=== PATIENT | female | born 1950 | race Caucasian/White ===

== ENCOUNTER 2020-10-12 08:39 | Outpatient (CLI) | payer OTHER, SELFPAY ==
--- NOTE | 2020-10-12 06:00 | DI.RAD_ITS ---
EXAM: XR PAIN CLINIC SACRIOILIAC 2V CLINICAL HISTORY: Dx: Sacroiliac Joint dysfunction. TECHNIQUE: Fluoroscopy was provided for the referring physician for guidance with performing injecti on procedure. COMPARISON: CR XR SACRUM AND COCCYX from 07/26/2020 CR XR SACRUM AND COCCYX from 07/26/2020 FINDINGS: Please see procedure note for details. Hard copy images show a calcified uterine fibroid which was seen on previous sacrum and coccyx images from [facility] dated 26 July 2020. RADIATION DOSE DELIVERED: Fluoro time 21.3 seconds. Radiation dose 5.06 mGy.
[2020-10-12 09:02] VITALS: BP 140/84; PULSE 68; RESP 17; TEMP 36.4; O2SAT 98
[2020-10-12 09:48] VITALS: BP 159/81; PULSE 80; RESP 13; O2SAT 100
[2020-10-12] MEDS: methylPREDNISolone ACETATE 80 MG/ML VIAL IJ (09:50)
--- NOTE | 2020-10-12 10:00 | PDOC.PAIN ---
Pain Clinic Procedure Note Procedure Note Procedure Note: INTRA-ARTICULAR SI JOINT INJECTION KIRAN ROGERS has been referred to the Pain Management Center for intra-articular SI joint injection. pre-operative diagnosis: sacroiliac joint dysfunction post-operative diagnosis: same as above COMMENTS: patient was evaluated by Ms Anne Carolina in clinic who recommended a trial of left SI joint injection for symptomatic pain relief. patient reported that 2 days after her clinic evaluation, she had about 3-4 weeks of bowel incontinence, denies saddle paresthesia, no worsening back pain, no leg weakness/numbness, she has baseline balance issues which has not changed significantly. 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 Her bowel issue spontaneously resolved and has not recurred. Patient was interviewed and the medical record reviewed. There were no medical, pharmacologic, radiographic or other structural contraindications to attempting fluoroscopically guided intra-articular SI joint injection. Risks and expected side effects as well as potential benefit of the procedure were reviewed and voiced concerns addressed. The printed consent form was signed and witnessed. Standard time-out procedure was performed. Patient was placed in the prone position on the fluoroscopy table and automated blood pressure cuff and pulse oximeter applied. The skin entry point for approaching left SI joints was identified under the most advantageous fluoroscopic view and marked. Following thorough Chlorhexadine preparation of the skin and draping and 1% lidocaine infiltration of the skin entry point and subcutaneous tissues, a 22 gauge spinal needle was placed under fluoroscopic guidance into left SI joints was identified under the most advantageous fluoroscopic view and marked. Following thorough Chlorhexadine preparation of the skin and draping and 1% lidocaine infiltration of the skin entry point and subcutaneous tissues, a 22 gauge spinal needle was placed under fluoroscopic guidance into left SI joint. due to previous allergic reaction to iodinated contrast, Omnipaque 240 was not used. AP and lateral images were taken to confirm needle placement. Then 1ml 1% lidocaine, and 40mg Depomedrol were injected intra-articularily with an initial reproduction of a significant component of the usual pain. Vital signs were stable throughout the procedure and were as recorded in the docflowsheet by the nursing staff. Follow up plans and appointments were discussed with the patient. Post procedure instruction was given as documented in nursing documentation and having met discharge criteria, and was discharged from the Pain Management Center. COMMENTS: there was an incidental finding of midline, radiodense, well circumscribed round structure identified on the fluoroscopic image. I spoke with radiologist Dr White who confirmed that the same structure has been identified on her previous pelvic x-ray and it represents a calcified fibroid. I relayed the message to patient. I encouraged Ms Rogers to discuss her bowel issues with her PCP and see if additional evaluation by GI specialist is warranted. Chito Frias MD Pain Management CC: MALLORY PARADA
== END 2020-10-12 08:40 | disposition home or self-care (01) ==
PROVIDERS: PCP Family Medicine; Visit Provider Internal Medicine
DX: M53.3 Sacrococcygeal disorders, not elsewhere classified (principal)
CPT/HCPCS: 27096; 72200; J1040

== ENCOUNTER 2021-08-04 01:28 | Outpatient (CLI) | payer OTHER, SELFPAY ==
--- NOTE | 2021-08-04 | DI.US_ITS ---
Exam(s) US PAIN CLINIC NEEDLE GUIDANCE EXAM: ULTRASOUND GUIDED INJECTION,SI JOINT DYSFUNCTION ON LT L5,NERVE ROOT SYN COMPARISON: No exams were available for comparison TECHNIQUE: Ultrasound performed using standard protocol. FINDINGS: Ultrasound guidance was performed for left piriformis muscle trigger point injection. The radiologis t was not present for this procedure. IMPRESSION: DATA REPOSITORY:
[2021-08-04 09:01] VITALS: BP 135/86; PULSE 77; RESP 18; TEMP 36.7; O2SAT 97
--- NOTE | 2021-08-04 09:50 | PDOC.PAIN_ITS ---
Pain Clinic Procedure Note Procedure Note Procedure Note: ULTRASOUND GUIDED Left Piriformis muscle trigger point INJECTIONS Pre-Procedural Evaluation: Evelyn Rogers has been referred to the Pain Management Center for an Ultrasound Guided left Piriformis muscle trigger point injection for a chief complaint of left buttock and left leg pain. Pre-procedure Pain Score: 5/10 DX: Muscle pain, Piriformis syndrome Patient was interviewed and the medical record reviewed. There were no medical, pharmacologic, radiographic, or other structural contraindications to preforming an ultrasound guided injection. Risks and expected side effects as well as pote ntial benefits of the procedure were reviewed. The patient consent form was signed and witnessed. Standard time-out procedure was performed. The use of direct ultrasound visualization of the needle (rather than a non- guided injection) was required to increase patient safety by excluding inadvertent intramuscular, intratendinous, or intraneural needle placement and minimizing bleeding by avoiding osteochondral or vascular injury from the needle. Additionally, the increased accuracy of placement may increase clinical effectiveness and will allow higher diagnostic specificity when evaluating ef fectiveness of this injection. Procedure Description: The patient was placed in the prone position and automated blood pressure cuff and pulse oximeter applied for monitoring during the procedure and recorded in the medical record. Pre-injection ultrasound scanning of the area of interest was performed using linear transducer, identifying relevant anatomy, landmarks, and neurovascular structures allowing for optimal needle path. The site was then prepared in the usual sterile fashion, using thorough Chlorhexadine preparation of the skin and sterile draping. The same ultrasound transducer was then passed into the sterile field using sterile probe cover and sterile ultrasound gel. The injection target was again visualized. Skin and subcutaneous tissues were anesthetized with 2 mL of 1% Lidocaine. A 21G 3.5 Pajunk ultrasound needle was placed under live ultrasound guidance, using an in-plane approach, to the target area. After visualization of the needle tip at the target area, first 40 mg of Depomedrol (40 mg/cc) was injected after negative aspiration for blood. This was flushed with 3 cc of 1% Lidocaine. Numerous passes were made through the posterior aspect of the Piriformis muscle. Ultrasound images were captured and stored for documentation purposes. Post-procedure Pain Score:4/10 Vital signs were stable throughout the procedure and were as recorded in the docflowsheet by the nursing staff. Follow up plans and appointments were discussed with the patient.Post procedure instruction was given as documented in nursing documentation and having met discharge criteria, they were discharged from the Pain Management Center. COMMENTS: If this procedure is helpful, it can be completed up to 3 times per 12 months. Judd Saldana DO, MPH [facility]-Pain Management [facility]
[2021-08-04] MEDS: methylPREDNISolone ACETATE 40 MG/ML VIAL IJ (09:52)
[2021-08-04 09:57] VITALS: PULSE 79; O2SAT 100
== END 2021-08-04 01:48 ==
PROVIDERS: PCP Family Medicine; Visit Provider Preventive Medicine Occupational Medicine
DX: G57.02 Lesion of sciatic nerve, left lower limb (principal); M79.605 Pain in left leg; M79.18 Myalgia, other site
CPT/HCPCS: 20552; 76942; J1030

== ENCOUNTER → 2021-12-21 02:56 | Outpatient (CLI) | payer OTHER, SELFPAY ==
--- NOTE | 2021-12-21 | DI.US_ITS ---
Exam(s) US PAIN CLINIC NEEDLE GUIDANCE EXAM: PIRIFORMIS SYNDROME, G57.01,ultrasound guided injection COMPARISON: US US PAIN CLINIC NEEDLE GUIDANCE from 08/04/2021 TECHNIQUE: Ultrasound performed using standard protocol. FINDINGS: Ultrasound guidance provided during left for piriformis trigger point injection. Radiologist was not present during this procedure IMPRESSION: DATA REPOSITORY:
[2021-12-21 09:34] VITALS: BP 129/85; PULSE 72; RESP 18; TEMP 36.7; O2SAT 98
[2021-12-21 10:13] VITALS: PULSE 83; O2SAT 100
--- NOTE | 2021-12-21 10:16 | PDOC.PAIN ---
Pain Clinic Procedure Note Procedure Note Procedure Note: ULTRASOUND GUIDED LEFT PIRIFORMIS MUSLCE TRIGGER POINT INJECTIONS Pre-Procedural Evaluation: Evelyn Rogers has been referred to the Pain Management Center for an Ultrasound Guided left Piriformis muscle trigger point injection for a chief complaint of left buttock and left leg pain. Pre-procedure Pain Score: 4/10 Patient was interviewed and the medical record reviewed. There were no medical, pharmacologic, radiographic, or other structural contraindications to preforming an ultrasound guided injection. Risks and expected side effects as well as potential benefits of the procedure were reviewed. The patient consent form was signed and witnessed. Standard time-out procedure was performed. The use of direct ultrasound visualization of the needle (rather than a non-guided injection) was required to increase patient safety by excluding inadvertent intramuscular, intratendinous, or intraneural needle placement and minimizing bleeding by avoiding osteochondral or vascular injury from the needle. Additionally, the increased accuracy of placement may increase clinical effectiveness and will allow higher diagnostic specificity when evaluating effectiveness of this injection. Procedure Description: The patient was placed in the prone position and automated blood pressure cuff and pulse oximeter applied for monitoring during the procedure and recorded in the medical record. Pre-injection ultrasound scanning of the area of interest was performed using linear transducer, identifying relevant anatomy, landmarks, and neurovascular structures allowing for optimal needle path. The site was then prepared in the usual sterile fashion, using thorough Chlorhexadine preparation of the skin and sterile draping. The same ultrasound transducer was then passed into the sterile field using sterile probe cover and sterile ultrasound gel. The injection target was again visualized. Skin and subcutaneous tissues were anesthetized with 2 mL of 1% Lidocaine. A 21G Pajunk Ultrasound needle was placed under live ultrasound guidance, using an in-plane approach, to the target area. After visualization of the needle tip at the target area, a 40 mg of Depomedrol (40 mg/cc) followed by 4 cc of 2% Lidocaine. The injectate was delivered after negative aspiration for blood. I then made 15 passes through the posterior piriformis muscle fascial plan. Ultrasound images were captured and stored for documentation purposes. Post-procedure Pain Score:2/10 Vital signs were stable throughout the procedure and were as recorded in the docflowsheet by the nursing staff. Follow up plans and appointments were discussed with the patient.Post procedure instruction was given as documented in nursing documentation and having met discharge criteria, they were discharged from the Pain Management Center. COMMENTS: She will continue with her PT and home exercises. Her PT is concerned about instability in her lumbar spine secondary to problems using extension exercises. I recommended that we get a flexion/extension x-rays of the lumbar spine to rule this out. Judd Saldana DO, MPH [facility]-Pain Management [facility] Pain Management
[2021-12-21] MEDS: Lidocaine 2% Pres-Free 2 ML VIAL IJ (10:27)
[2021-12-21] MEDS: methylPREDNISolone ACETATE 40 MG/ML VIAL IJ (10:27)
== END ==
PROVIDERS: PCP Family Medicine; Visit Provider Preventive Medicine Occupational Medicine
DX: M79.605 Pain in left leg (principal); M79.18 Myalgia, other site
CPT/HCPCS: 20552; 76942; J1030

== ENCOUNTER 2024-05-21 07:36 | Outpatient (CLI) | payer MEDICARE, SELFPAY ==
[2024-05-21] VITALS (10 sets, daily range): BP systolic 152–194; BP diastolic 87–114; PULSE 75–88; RESP 11–20; TEMP 36.7; O2SAT 98–100
--- NOTE | 2024-05-21 06:00 | DI.RAD_ITS ---
Exam(s) XR PAIN CLINIC SACRIOILIAC 2V EXAM: XR PAIN CLINIC SACRIOILIAC 2V CLINICAL HISTORY: DX: Sacroiliac Dysfunction TECHNIQUE: 2D and realtime digital imaging was performed. CONTRAST MATERIAL: Refer to procedure report. COMPARISON: No exams were available for comparison FINDINGS: Fluoroscopy was provided for Dr. Saldana during the performance of a left sacroiliac joint injection. Please refer to the procedure report for complete details. Ka,r=3.54 mGy IMPRESSION: RADIATION DOSE DELIVERED: 0.0 0.0 0
[2024-05-21] MEDS: Nerve Block Tray 1 EACH MC (08:53)
[2024-05-21] MEDS: methylPREDNISolone ACETATE 80 MG/ML VIAL IJ (08:53)
[2024-05-21] MEDS: Omnipaque 240 MG/ML 50 ML BTL IJ (08:53)
--- NOTE | 2024-05-21 10:34 | PDOC.PAIN ---
Date of service: 05/21/24 Time of Service: 10:34 Pain Managment Procedure Note Procedure Note Procedure Note: PROCEDURE NOTE LEFT INTRA-ARTICULAR SACROILIAC JOINT INJECTION Date of Service: May 21, 2024 Patient: Evelyn Rogers Provider: Judd Donald DO, MPH COMMENTS: I previously evaluated the patient in the office and their symptoms in relation to the sacroiliac joint pain have remained the same. There was some question of iodine allergy as she had a reaction to shellfish 45 years ago. We discussed this in detail and I feel that she will be fine with the Iodine contrast. She agrees to try this. Pre-operative diagnosis: Sacroiliac joint dysfunction ICD-10 M53.3 Post-operative diagnosis: Same Pre-procedure pain: VAS= 6/10 Evelyn Rogers has been referred to our [facility] for a Left intra-articular Sacroiliac joint injection. Evelyn was interviewed and the medical record reviewed. There were no medical, pharmacologic, radiographic or other structural contraindications to attempting a fluoroscopically-guided, contrast-enhanced, intra-articular Sacroiliac joint injection. The risks, benefits, and potential side effects of this procedure were reviewed with the patient. Questions and concerns were addressed. After it was clear that Evelyn was fully informed about the procedure, the printed consent form was signed by the patient and myself. Evelyn was placed in the prone position on the fluoroscopy table and an automated blood pressure cuff, 3 lead EKG, and pulse oximeter were applied. The skin entry point for approaching the Left sacroiliac joint was identified under the most advantageous fluoroscopic view and marked. Following thorough Chlorhexadine preparation of the skin and draping with sterile surgical drapes, 2 mls of 1% lidocaine was infiltrated into the skin at the entry point and the surrounding subcutaneous tissues. Next, a 3.5 22G spinal needle was placed under fluoroscopic guidance into the Left sacroiliac joint. Intra-articular placement was confirmed by a clear arthrogram resulting from the injection of 0.25ml of Omnipaque-240. Next, 1 ml of Depo- Medrol 80 mg/ml was injected intra-articularly with an initial reproduction of a significant component of the usual pain. This was followed with 1 ml of 1% Lidocaine. The needle was then removed without difficulty. (49 ml of Omnipaque-240 was wasted). Evelyn's vital signs were stable throughout the procedure and were as recorded in nursing records. Follow up plans and appointments were discussed with Evelyn. Post procedure instructions were given as documented in nursing records. Having met discharge criteria, Evelyn was discharged from the [facility]. COMMENTS: Post-procedure pain: VAS= 0/10. If the patient receives at least 50% improvement in pain and/or function for at least 3 months, this procedure can be repeated if needed. We watched her for 30 minutes. She did not have any allergic reactions. I personally performed this entire procedure. JUDD DONALD DO, MPH [facility]-subspecialty board certification in Pain Medicine [facility]-Center for Pain Management
== END 2024-05-21 07:37 | disposition home or self-care (01) ==
LOC: PC 07:36
PROVIDERS: PCP Physician Assistant; Visit Provider Preventive Medicine Occupational Medicine
DX: M54.50 Low back pain, unspecified (principal); M53.3 Sacrococcygeal disorders, not elsewhere classified
CPT/HCPCS: 27096; 72200; J1010; Q9967

== ENCOUNTER 2024-12-03 10:38 | Outpatient (CLI) | payer BC, SELFPAY ==
[2024-12-03] VITALS (9 sets, daily range): BP systolic 137–224; BP diastolic 66–95; PULSE 69–74; RESP 14–18; TEMP 36.6; O2SAT 99–100
--- NOTE | 2024-12-03 12:00 | PDOC.PAIN_ITS ---
Date of service: 12/03/24 Time of Service: 12:00 US Guided Injections Type of Ultrasound Guided Injection: Right Scapulothoracic Bursa Injection and Middle back Right Paraspinous and Rhomboid muscle Trigger Point Injection Pre-Procedural Evaluation No skin abnormalities at the area of the proposed injection sites Referral Patient has been referred to the Pain Management Center for Right Scapulothoracic Bursa Injection and Right Paraspinous and Rhomboid muscle Middle back Trigger Point Injection for a chief complaint of Pre-Procedural Pain Score Pre-procedural pain score: 7/10 Reason for Exam Pain to the right middle back Patient Interview Patient was interviewed and medical record reviewed: Yes There were no contraindications to performing an US guided procedure. Risks,expected side effects, potential benefits were reviewed. The patient consent form was signed and witnessed. Standard time out procedure was performed. Patient Safety Skin without noticeable irregularity at the proposed injection site. Procedure Description No sedation given for procedure Patient was placed in the prone position and the following Pulse Ox applied. Pre-Procedure ultrasound scanning performed using a Linear 9 MHz probe Site Preparation Chloroprep Local Anesthesia of Lidocaine 2%. A 21 G 3.5 Pajunk ultrasound needle was placed under live US guidance using an in-plane approach to the target area. After visualization of the needle tip at the target area Dep-Medrol 80mg per cc and Lidocaine 2% were used. Total of Injectate/Medication Note: 6 cc of 2% Lidocaine and 1 cc of Depomedrol Negative aspiration for blood. [place] were removed without difficulty. Ultrasound images were captured and stored. Patient Mental Status Patient was alert and awake during procedure Vital Signs Vital signs were stable throughout the procedure and recorded by nursing. Follow Up/Discharge Follow up plans and appointments were discussed with patient. Post procedure instruction was given as documented in nursing documentation. Discharge criteria met and patient discharged from Pain Management Center: Yes Post Procedure Pain Post Procedure Pain: 0/10 Patient tolerated procedure well Procedure Outcome: Successful Non US Guided Injections Procedure Description Patient was placed in the prone position Post Procedure Pain Post Procedure Pain: 0/10 Coding Conscious Sedation used for procedure: No CPT Codes: TPI Single/Multi 1 or 2 Muscles - (6196609 ~G) Inj,Bursa/Tendon w/US Med - ([id number] ~G) Additional Codes: Visualization of the needle tip - Ultrasound images captured/stored: Yes ([id number]) Date of Service ([id number]) Date of service: 12/03/24
[2024-12-03] MEDS: methylPREDNISolone ACETATE 40 MG/ML VIAL IJ (12:15)
[2024-12-03] MEDS: Lidocaine 2% Pres-Free 5 ML VIAL IJ (12:16)
[2024-12-03] MEDS: Nerve Block Tray 1 EACH MC (12:17)
== END 2024-12-03 10:39 | disposition home or self-care (01) ==
LOC: PC 10:40
PROVIDERS: PCP Physician Assistant; Visit Provider Preventive Medicine Occupational Medicine
DX: M54.6 Pain in thoracic spine (principal); M79.18 Myalgia, other site
CPT/HCPCS: 20552; 20606; 76942; J1010

== ENCOUNTER 2025-05-28 07:32 | Outpatient (CLI) | payer BC, SELFPAY ==
[2025-05-28 07:37] VITALS: BP 141/80; PULSE 83; RESP 18; TEMP 36.7; O2SAT 98
[2025-05-28 08:19] VITALS: PULSE 76; PULSE 77; RESP 13; O2SAT 97
[2025-05-28 08:20] VITALS: BP 174/93; PULSE 78; RESP 10; O2SAT 97
[2025-05-28 08:21] VITALS: PULSE 76; PULSE 77; RESP 10; O2SAT 98
--- NOTE | 2025-05-28 08:29 | DI.RAD_ITS ---
Exam(s) XR PAIN CLINIC SACRIOILIAC 2V EXAM: XR PAIN CLINIC SACRIOILIAC 2V CLINICAL HISTORY: DX: Sacroiliac Dysfunction. TECHNIQUE: Fluoroscopy was provided for the referring physician for guidance with performing pain clinic injection procedure. COMPARISON: No exams were available for comparison FINDINGS: Please see procedure note for details. Fluoro time: 13.3 seconds RADIATION DOSE DELIVERED: Ka,r=2.8 mGy
[2025-05-28] MEDS: Nerve Block Tray 1 EACH MC (08:37)
[2025-05-28] MEDS: Omnipaque 240 MG/ML 50 ML BTL IJ (08:37)
[2025-05-28] MEDS: methylPREDNISolone ACETATE 40 MG/ML VIAL IJ (08:37)
--- NOTE | 2025-05-28 08:43 | PDOC.PAIN_ITS ---
Date of service: 05/28/25 Time of Service: 08:43 Pain Managment Procedure Note Procedure Note Procedure Note: PROCEDURE NOTE LEFT INTRA-ARTICULAR SACROILIAC JOINT INJECTION Date of Service: May 28, 2025 Patient: Evelyn Rogers Provider: Judd Donald DO, MPH COMMENTS: I previously evaluated the patient in the office and their symptoms in relation to the sacroiliac joint pain have remained the same. She had about 6 months of >50% pain relief with her last left sacroiliac joint injection. Pre-operative diagnosis: Sacroiliac joint dysfunction ICD-10 M53.3 Post-operative diagnosis: Same Pre-procedure pain: VAS= 5/10 Evelyn Rogers has been referred to our [facility] for a Left intra-articular Sacroiliac joint injection. Evelyn was interviewed and the medical record reviewed. There were no medical, pharmacologic, radiographic or other structural contraindications to attempting a fluoroscopically-guided, contrast-enhanced, intra-articular Sacroiliac joint injection. The risks, benefits, and potential side effects of this procedure were reviewed with the patient. Questions and concerns were addressed. After it was clear that Evelyn was fully informed about the procedure, the printed consent form was signed by the patient and myself. Evelyn was placed in the prone position on the fluoroscopy table and an automated blood pressure cuff, 3 lead EKG, and pulse oximeter were applied. The skin entry point for approaching the Left sacroiliac joint was identified under the most advantageous fluoroscopic view and marked. Following thorough Chlorhexadine preparation of the skin and draping with sterile surgical drapes, 2 mls of 1% lidocaine was infiltrated into the skin at the entry point and the surrounding subcutaneous tissues. Next, a 3.5 22G spinal needle was placed under fluoroscopic guidance into the Left sacroiliac joint. Intra-articular placement was confirmed by a clear arthrogram resulting from the injection of 0.25ml of Omnipaque-240. Next, 2 ml of Depo- Medrol 40 mg/ml was injected intra- articularly with an initial reproduction of a significant component of the usual pain. This was followed with 1 ml of 1% Lidocaine. The needle was then removed without difficulty. (49 ml of Omnipaque-240 was wasted). Evelyn's vital signs were stable throughout the procedure and were as recorded in nursing records. Follow up plans and appointments were discussed with Evelyn. Post procedure instructions were given as documented in nursing records. Having met discharge criteria, Evelyn was discharged from the [facility]. COMMENTS: Post-procedure pain: VAS= 1/10. If the patient receives at least 50% improvement in pain and/or function for at least 3 months, this procedure can be repeated if needed. I personally performed this entire procedure. JUDD DONALD DO, MPH ABPMR-subspecialty board certification in Pain Medicine [facility] Coding Conscious Sedation used for procedure: No CPT Codes: SI Joint Inj; incl Fluoro - 89202 ([id number] ~G) Left Additional Codes: Date of Service () Diagnoses: Sacroiliac joint dysfunction
== END 2025-05-28 07:33 | disposition home or self-care (01) ==
LOC: PC 07:33
PROVIDERS: PCP Physician Assistant; Visit Provider Preventive Medicine Occupational Medicine
DX: M54.50 Low back pain, unspecified (principal); M53.3 Sacrococcygeal disorders, not elsewhere classified
CPT/HCPCS: 27096; 72200; J1010; Q9967